=== PATIENT | female | born 1995 | race Caucasian/White ===

== ENCOUNTER 2021-07-02 21:43 | Emergency (ER) | payer OTHER ==
[~2021-07-02] VITALS: Ht 157.5 cm; Wt 75.0 kg
--- NOTE | 2021-07-02 22:04 | PHYS DOC ---
General Adult EDM: Chief Complaint: MULTIPLE COMPLAINTS HPI: HPI: "This chest abdomen pain started yesterday... just worse tonight... I ve had it before.. I ve also had hard stool.s.. Patient is a 26 year old female who presents with above hx and complaints of epigastric pain off and on for weeks but much more severe starting yesterday. Patient also complaining of some constipation. Patient has been taking Pepto- Bismol. Patient denies any travel. Patient denies any specific ill contacts. Patient denies any trauma. Patient denies any bad food. Patient has had some vomiting of undigested food. Patient last medical history. On set of illness was aproximately 2 weeks ago. No history of immune suppression. There is family history of gallstones with her mother starting at her age. Pain is localized primarily in the epigastric and right upper quadrant. Has rebound to epigastric and right upper quadrant. Has no psoas sign. Pt follows with [facility] as primary,. Review of Systems: Review of Systems: Constitutional: Denies fever or chills Eyes: Denies change in visual acuity HENT: Denies nasal congestion or sore throat Respiratory: Denies cough or shortness of breath Cardiovascular: Complains of epigastric chest pain GI: Complains of abdominal pain, nausea, vomiting, complains of constipation : Denies dysuria Musculoskeletal: Denies back pain or joint pain Integument: Denies rash Neurologic: Denies headache, focal weakness or sensory changes Endocrine: Denies polyuria or polydipsia Lymphatic: Denies swollen glands Psychiatric: Denies depression or anxiety Family History: Family History: Gallstones with mother and other family members Current Medications: Current Meds: See nursing for home meds Allergies: Allergies: Per nursing Physical Exam: PE: Constitutional: Well developed, well nourished, acute distress, non-toxic appearance. [] HENT: Normocephalic, atraumatic, bilateral external ears normal, oropharynx moist, no oral exudates, nose normal. [] Eyes: PERRLA, EOMI, conjunctiva normal, no discharge. [] Neck: Normal range of motion, no tenderness, supple, no stridor. [] Cardiovascular:Heart rate regular rhythm, no murmur [] Lungs & Thorax: Bilateral breath sounds clear to auscultation [] Abdomen: Bowel sounds normal, soft, epigastric and right upper quadrant tenderness, no masses, no pulsatile masses. [] Rebound tenderness right upper quadrant Skin: Warm, dry, no erythema, no rash. [] Back: No tenderness, no CVA tenderness. [] Extremities: No tenderness, no cyanosis, no clubbing, ROM intact, no edema. [] No psoas sign. No cording Neurologic: Alert and oriented X 3, normal motor function, normal sensory funct ion, no focal deficits noted. [] Psychologic: Affect anxious, judgement normal, mood normal. [] EKG: EKG: My interpretation EKG shows a sinus rhythm at 66 bpm. There is some baseline artifact. No findings of acute STEMI of contralateral changes. Does have a slight interventricular delay. Time of EKG is 20 to 20 hours [] Interpretation of repeat EKG shows a sinus rhythm at 79 bpm. No acute morphology. Time of final EKG was 442 hours Radiology/Procedures: Radiology/Procedures: [[place] [id number] IMAGING REPORT Signed PATIENT: JULIO CESAR ESCALONA ACCOUNT: [id number] : 1995 LOCATION: ER AGE: 26 SEX: F EXAM STATUS: PRE ER ORD. PHYSICIAN: SHO JONES MD REASON: pain, chest, abd- epigastric PROCEDURE: ACUTE ABDOMEN SERIES EXAM: XR ABDOMEN COMP ACUTE 07/02/2021 10:35 PM CLINICAL INDICATION: Pain, chest abdominal and epigastric pain COMPARISON: None TECHNIQUE: AP supine and upright view of the abdomen. PA view of the chest FINDINGS: Bowel gas pattern is nonspecific and nonobstructive. Moderate volume of stool. No pneumoperitoneum. The heart and lungs are normal. No pleural effusion or pneumothorax. Mild thoracolumbar scoliosis. IMPRESSION: No acute abnormality. Electronically signed by: Dhara Leonardo MD (07/02/2021 11:32 PM) [facility] DICTATED AND SIGNED BY: DHARA LEONARDO MD DATE: 07/02/21 2153 CC: KLARISSA RICHMOND APRN; SHO JONES MD ~ ]: 1995LOCATION: ERAGE: 26 SEX: F EXAM STATUS: REG ER ORD. PHYSICIAN: SHO JONES MD REASON: pain PROCEDURE: CT ABD PEL W/ORAL CONTRST ONLY PQRS Compliance Statement: One or more of the following individualized dose reduction techniques were util ized for this examination: 1. Automated exposure control 2. Adjustment of the mA and/or kV according to patient size 3. Use of iterative reconstruction technique CT ABDOMEN+PELVIS W Clinical Indication: Reason: pain / Spl. Instructions: / History: Comparison: None. Technique: Helical CT imaging of the abdomen and pelvis is performed without IV contrast. Oral contrast is administered. Findings: Evaluation of solid organs is limited without IV contrast, decreasing sensitivity for detection of abnormal findings. Lung bases are clear. Cardiac size normal. Cholelithiasis. The liver, spleen, pancreas, adrenal glands, abdominal aorta, and kidneys are normal. The stomach is unremarkable. There is no small bowel obstruction. The appendix is normal. There is no colon wall thickening. No abdominal adenopathy or free fluid. The urinary bladder is normal. Uterus is unremarkable. The ovaries are symmetric in size. There is no pelvic free fluid. 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 IMPRESSION: 1. There is no acute abdominal or pelvic abnormality. 2. Cholelithiasis. Electronically signed by: Jackson Damon MD (07/03/2021 2:43 AM) [facility] DICTATED AND SIGNED BY: JACKSON DAMON MD DATE: 07/03/21237 CC: KLARISSA RICHMOND APRN; SHO JONES MD ~ Heart Score: C/O Chest Pain: N/A Risk Factors: Risk Factors: DM, Current or recent (<one month) smoker, HTN, HLP, family history of CAD, obesity. Risk Scores: Score 0 - 3: 2.5% MACE over next 6 weeks - Discharge Home Score 4 - 6: 20.3% MACE over next 6 weeks - Admit for Clinical Observation Score 7 - 10: 72.7% MACE over next 6 weeks - Early Invasive Strategies Course & Med Decision Making: Course & Med Decision Making Pertinent Labs and Imaging studies reviewed. (See chart for details) Patient to start a gallbladder type diet no fats or oils. Patient to first have a clear fluid diet for the next couple days. Take Pepcid 20 mg 2 times a day. Follow-up with surgery for possible cholecystectomy. Tylenol and ibuprofen for pain. Return if any concerns. Impression: 1. Biliary colic 2. Gallstones [] Walter Disclaimer: aWlter Disclaimer: This electronic medical record was generated, in whole or in part, using a voice recognition dictation system. Departure Departure: Referrals: KLARISSA RICHMOND APRN (PCP) Scripts Famotidine (PEPCID) 20 Mg Tablet 20 MG PO BID for gerd, #60 TAB Prov: SHO JONES MD 07/03/21 Walter Disclaimer This chart was dictated in whole or in part using Voice Recognition software in a busy, high-work load, and often noisy Emergency Department environment. It may contain unintended and wholly unrecognized errors or omissions. SHO JONES MD July 02, 2021 22:04
[2021-07-02] MEDS ORDERED: IV RINGERS SOLUTION,LACTATED 1,000 ML IV SCH (22:15)
[2021-07-02] MEDS ORDERED: ONDANSETRON PF 4 MG/2 ML VIAL. ONE (22:18)
[2021-07-02] MEDS ORDERED: MAGNESIUM HYDROXIDE 2,400 MG/30 ML ORAL.SUSP. PO ONE (22:45)
[2021-07-02] MEDS ORDERED: FAMOTIDINE 20 MG/2 ML VIAL IVP ONE (22:45)
[2021-07-02 22:56] LABS: CLARITY,URINE CLEAR; COLOR,URINE YELLOW; GLUCOSE,URINE NEG (NEG)
[2021-07-02 22:57] LABS: BACTERIA,URINE 0 /HPF (0-FEW); NITRITE,URINE NEG (NEG); RBC,URINE 0 /HPF (0-2); SQUAMOUS EPITHELIAL CELL,UR MOD /LPF; UROBILINOGEN,URINE 0.2 mg/dL (0.2 mg/dL); WBC,URINE OCC /HPF (0-4)
[2021-07-02 23:02] LABS: AMPHETAMINE/METHAMPHETAMINE NEG (NEG); BARBITURATES NEG (NEG); BENZODIAZEPINES NEG (NEG); CANNABINOIDS NEG (NEG); COCAINE NEG (NEG); METHADONE NEG (NEG); OPIATES NEG (NEG); PHENCYCLIDINE NEG (NEG)
[2021-07-02] MEDS ORDERED: ONDANSETRON PF 4 MG/2 ML VIAL. IVP ONE (23:15)
[2021-07-02 23:18] LABS: BASO # 0.1 x10^3/uL (0.0-0.2); BASO % 0 % (0-3); EOS # 0.1 x10^3/uL (0.0-0.7); EOS % 1 % (0-3); LYMPH # 2.4 x10^3/uL (1.0-4.8); LYMPH % 17 % (24-48); MEAN CORPUSCULAR HEMOGLOBIN 29 pg (25-35); MEAN CORPUSCULAR HGB CONC 33 g/dL (31-37); MEAN CORPUSCULAR VOLUME 87 fL (79-100); MONO % 8 % (0-9); NEUT # 10.1 x10^3uL (1.8-7.7); NEUT % 74 % (31-73); PLATELET COUNT 240 x10^3/uL (140-400); RED BLOOD COUNT 4.84 x10^6/uL (3.50-5.40); RED CELL DISTRIBUTION WIDTH 13.6 % (11.5-14.5); WHITE BLOOD COUNT 13.7 x10^3/uL (4.0-11.0)
[2021-07-02] MEDS ORDERED: MORPHINE SULFATE 10 MG/ML SYRINGE. ONE (23:24)
[2021-07-02 23:30] LABS: INFLUENZA A PATIENT NEGATIVE (NEGATIVE); INFLUENZA B PATIENT NEGATIVE (NEGATIVE)
[2021-07-02] MEDS ORDERED: MORPHINE SULFATE 10 MG/ML SYRINGE. SQ ONE (23:30)
[2021-07-02 23:31] LABS: CALCIUM 9.8 mg/dL (8.5-10.1); CREATININE 0.9 mg/dL (0.6-1.0); GFR 74.6; POTASSIUM 3.8 mmol/L (3.5-5.1)
--- NOTE | 2021-07-02 23:34 | RAD ---
EXAM: XR ABDOMEN COMP ACUTE 07/02/2021 10:35 PM CLINICAL INDICATION: Pain, chest abdominal and epigastric pain COMPARISON: None TECHNIQUE: AP supine and upright view of the abdomen. PA view of the chest FINDINGS: Bowel gas pattern is nonspecific and nonobstructive. Moderate volume of stool. No pneumope ritoneum. The heart and lungs are normal. No pleural effusion or pneumothorax. Mild thoracolumbar sco liosis. IMPRESSION: No acute abnormality. Electronically signed by: Dhara Leonardo MD (07/02/2021 11:32 PM) [facility]
[2021-07-02 23:44] LABS: ALBUMIN 4.2 g/dL (3.4-5.0); DIRECT BILIRUBIN 0.1 mg/dL (0.0-0.2); TOTAL BILIRUBIN 0.4 mg/dL (0.2-1.0); TOTAL PROTEIN 7.7 g/dL (6.4-8.2)
[2021-07-02] MEDS ORDERED: IOHEXOL 240 MG/ML 50ML VIAL. ONE (23:53)
[2021-07-03] MEDS ORDERED: LIDOCAINE (700MG/PATCH) PATCH. TD SCH (01:45)
[2021-07-03] MEDS ORDERED: ONDANSETRON PF 4 MG/2 ML VIAL. IVP ONE (02:00)
--- NOTE | 2021-07-03 02:45 | RAD ---
PQRS Compliance Statement: One or more of the following individualized dose reduction techniques were utilized for this examinat ion: 1. Automated exposure control 2. Adjustment of the mA and/or kV according to patient size 3. Use of iterative reconstruction technique CT ABDOMEN+PELVIS W Clinical Indication: Reason: pain / Spl. Instructions: / History: Comparison: None. Technique: Helical CT imaging of the abdomen and pelvis is performed without IV contrast. Oral contra st is administered. Findings: Evaluation of solid organs is limited without IV contrast, decreasing sensitivity for detection of ab normal findings. Lung bases are clear. Cardiac size normal. Cholelithiasis. The liver, spleen, pancreas, adrenal glands, abdominal aorta, and kidneys are normal. The stomach is unremarkable. There is no small bowel obstruction. The appendix is normal. There is no colon wall thickening. No abdominal adenopathy or free fluid. The urinary bladder is normal. Uterus is unremarkable. The ovaries are symmetric in size. There is no pelvic free fluid. 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 IMPRESSION: 1. There is no acute abdominal or pelvic abnormality. 2. Cholelithiasis. Electronically signed by: Jackson Damon MD (07/03/2021 2:43 AM) [facility]
[2021-07-03] MEDS ORDERED: diphenhydrAMINE 50 MG/ML VIAL IVP ONE (04:15)
[2021-07-03] MEDS ORDERED: MORPHINE SULFATE 10 MG/ML SYRINGE. SQ ONE (04:15)
[2021-07-03] MEDS ORDERED: PROCHLORPERAZINE 10 MG/2 ML VIAL. IV ONE (04:15)
[2021-07-03] MEDS ORDERED: FAMO-63 PO (04:52)
[2021-07-03 04:55] VITALS: BP 114/61
[2021-07-03] MEDS ORDERED: PATCH REMOVAL. MC SCH (21:00)
== END 2021-07-03 05:00 | disposition home or self-care (01) ==
LOC: ER 21:43
DX: K80.70 Calculus of gallbladder and bile duct without cholecystitis without obstruction (principal); Z20.822 Contact with and (suspected) exposure to COVID-19
CPT/HCPCS: 36415; 74022; 74176; 80048; 80076; 80307; 81001; 81025; 82550; 83690; 83735; 83880; 84443; 84484; 85025; 85379; 85610; 85730; 87428; 93005; 96361; 96372; 96374; 96375; 96376; 99285; J0780; J1200; J2270; J2405; J3490; J7120